=== PATIENT | male | born 2000 | race Caucasian/White ===

== ENCOUNTER 2020-11-21 20:01 | Emergency (ER) | payer SELFPAY ==
[~2020-11-21] VITALS: Ht 180.3 cm; Wt 99.8 kg
[2020-11-21 20:03] VITALS: BP_SYST 133
[2020-11-21 22:59] LABS: BILIRUBIN,URINE NEGATIVE (NEGATIVE); BLOOD, URINE NEGATIVE (NEGATIVE); CLARITY/URINE CLEAR (CLEAR); COLOR,URINE YELLOW (YELLOW); GLUCOSE,URINE NEGATIVE (NEGATIVE); KETONES,URINE 1+ (NEGATIVE); LEUKOCYTE ESTERASE ,URINE NEGATIVE (NEGATIVE); NITRITE, URINE NEGATIVE (NEGATIVE); PROTEIN URINE NEGATIVE (NEGATIVE); UROBILINOGEN,URINE 0.2 (0.2-1.0)
[2020-11-21 23:17] LABS: BARBITURATE, URINE NEGATIVE (NEG <=200); BENZODIAZEPINE, URINE NEGATIVE (NEG <=150); CANNABINOID, URINE POSITIVE (NEG <=50); COCAINE, URINE NEGATIVE (NEG <=150); METHAMPHETAMINES SCREEN,URINE NEGATIVE (NEG <=500); OPIATE, URINE NEGATIVE (NEG <=100); PHENCYCLIDINE SCREEN,URINE NEGATIVE (NEG <=25); UR TRICYCLIC ANTIDEPRESSANTS NEGATIVE (NEG <=300); URINE AMPHETAMINE NEGATIVE (NEG <=500); URINE METHADONE NEGATIVE (NEG <=200); URINE OXYCODONE SCREEN NEGATIVE (NEG <=100); URINE PROPOXYPHENE SCREEN NEGATIVE (NEG <=300)
[2020-11-21 23:32] LABS: BASOPHILS % (AUTO) 0.4 % (0.0-2.0); EOSINOPHILS # (AUTO) 0.1 K/uL (0.0-0.4); EOSINOPHILS % (AUTO) 1.1 % (0.0-4.0); HEMATOCRIT 42.9 % (36-54); HEMOGLOBIN 14.3 g/dL (14.0-18.0); LYMPHOCYTES # (AUTO) 3.6 K/uL (1.0-5.5); LYMPHOCYTES % (AUTO) 30.3 % (20.5-51.5); MEAN CORPUSCULAR HEMOGLOBIN 30 pg (27-31); MEAN CORPUSCULAR HGB CONC 33 % (32-36); MEAN CORPUSCULAR VOLUME 90 fL (79.0-98.0); NEUTROPHILS # (AUTO) 7.2 K/uL (1.8-7.7); NEUTROPHILS % (AUTO) 60.2 % (40.0-70.0); PLATELET COUNT (AUTO) 323 K/uL (130-430); RED BLOOD CELL COUNT(AUTO) 4.79 MIL/uL (4.2-6.2); RED CELL DISTRIBUTION WIDTH 13.6 % (9.0-15.0)
[2020-11-21 23:47] LABS: CALCIUM 8.9 mg/dL (8.4-11.0); CREATININE 0.86 mg/dL (0.55-1.30); POTASSIUM 3.3 mmol/L (3.5-5.1)
[2020-11-21 23:54] LABS: TOTAL BILIRUBIN 0.8 mg/dL (0.0-1.0)
[2020-11-22 00:15] LABS: CKMB RELATIVE INDEX 0.3 (0.0-2.9); CREATINE KINASE MB 1.4 ng/mL (0-3.6)
[2020-11-22] MEDS ORDERED: POTASSIUM CHLORIDE 20 MEQ TAB.PRT.SR PO ONE (00:15)
[2020-11-22 01:20] VITALS: BP_SYST 149
[2020-11-23] MEDS ORDERED: HYDR-500 PO (11:10)
== END 2020-11-22 01:21 | disposition home or self-care (01) ==
LOC: SED 20:01
DX: R51.9 Headache, unspecified (principal); F12.90 Cannabis use, unspecified, uncomplicated; Z79.899 Other long term (current) drug therapy
CPT/HCPCS: 36415; 71045; 80053; 80307; 81003; 82550; 82553; 85025; 93005; 99285

== ENCOUNTER 2020-11-23 10:23 | Emergency (ER) | payer SELFPAY ==
[~2020-11-23] VITALS: Ht 180.3 cm; Wt 99.8 kg
[2020-11-23 10:44] VITALS: BP_SYST 128
--- NOTE | 2020-11-23 10:48 | NUR ---
Patient to ER bed 5 to gown for evaluation. Side rails up. Report given to Che EASTMAN.
--- NOTE | 2020-11-23 10:50 | NUR ---
Pt walked in to ER with c/o anxiety and HTN, BP upon arrival WNL, other v/s stable, no acute distress noted. Pt was here on 11/21 and had full work up which was negative.
--- NOTE | 2020-11-23 10:56 | NUR ---
ER at bedside examining patient.
[2020-11-23] MEDS ORDERED: HYDR-500 PO (11:10)
[2020-11-23 11:23] VITALS: BP_SYST 128
--- NOTE | 2020-11-23 11:24 | NUR ---
Patient given written and verbal discharge instructions and verbalizes understanding. ER MD discussed with patient the results and treatment provided. Patient in stable condition. ID arm band removed. Rx of Atarax given. Patient educated on pain management and to follow up with PMD. Pain Scale 0. Opportunity for questions provided and answered. Medication side effect fact sheet provided.
[2020-11-23] MEDS ORDERED: LORazepam 1 MG TABLET PO ONE (11:30)
== END 2020-11-23 11:24 | disposition home or self-care (01) ==
LOC: SED 10:23
DX: F41.9 Anxiety disorder, unspecified (principal)
CPT/HCPCS: 99283